=== PATIENT | female | born 1995 | race Caucasian/White ===

== ENCOUNTER 2016-05-14 17:35 | Outpatient (CLI) | payer BC, MEDICAID | END 2016-05-14 18:40 | disposition home or self-care (01) | LOC: BC 17:35 → 2LDRP 17:35 → BC 18:40 | DX: O46.92 Antepartum hemorrhage, unspecified, second trimester (principal); Z3A.23 23 weeks gestation of pregnancy ==

== ENCOUNTER 2016-08-13 22:38 | Emergency (ER) | payer BC, OTHER, MEDICAID ==
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
== END 2016-08-14 02:59 | disposition home or self-care (01) ==
LOC: ER 22:38
DX: O9A.213 Injury, poisoning and certain other consequences of external causes complicating pregnancy, third trimester (principal); S13.9XXA Sprain of joints and ligaments of unspecified parts of neck, initial encounter; S40.011A Contusion of right shoulder, initial encounter; S70.01XA Contusion of right hip, initial encounter; R10.9 Unspecified abdominal pain; S50.311A Abrasion of right elbow, initial encounter; Z3A.39 39 weeks gestation of pregnancy; O99.513 Diseases of the respiratory system complicating pregnancy, third trimester; J45.909 Unspecified asthma, uncomplicated; Z79.899 Other long term (current) drug therapy; V49.9XXA Car occupant (driver) (passenger) injured in unspecified traffic accident, initial encounter